=== PATIENT | female | born 1945 | race Caucasian/White ===

== ENCOUNTER 2016-11-19 07:54 | Emergency (ER) | payer MEDICARE, BC | END 2016-11-19 08:45 | disposition home or self-care (01) | LOC: ER 07:54 | DX: S86.911A Strain of unspecified muscle(s) and tendon(s) at lower leg level, right leg, initial encounter (principal); K21.9 Gastro-esophageal reflux disease without esophagitis; W22.8XXA Striking against or struck by other objects, initial encounter; Z88.2 Allergy status to sulfonamides | CPT/HCPCS: 73590-RT; 99283 ==